=== PATIENT | male | born 1945 | race African-American/Black ===

== ENCOUNTER 2022-09-12 08:59 | Day surgery (SDC) | payer OTHER ==
--- NOTE | 2022-09-10 17:30 | EKG ---
Test Date: 2022-09-10 Test Time: 10:19:39 Major Assembly Inspector: ALLYN MEASUREMENT RESULTS: Intervals: Rate: 93 GA: 134 QRSD: 94 QT: 344 QTc: 427 [place]: P: 78 GA: 134 QRS: -45 T: 62 INTERPRETIVE STATEMENTS: Normal sinus rhythm Left anterior fascicular block Nonspecific ST abnormality Abnormal ECG No previous ECG available for comparison Electronically Signed On 09-10-22 17:30:18 CDT by Gideon Mccauley
[2022-09-12] MEDS ORDERED: Ringers Lactate 1,000 ML IV ONE (09:29)
[2022-09-12 10:16] VITALS: O2SAT 100
[2022-09-12] MEDS ORDERED: SUGAMMADEX SODIUM 200 MG/2 ML VIAL IV ONE (11:37)
[2022-09-12] MEDS ORDERED: propofoL 200 MG/20 ML VIAL IV ONE (11:54)
[2022-09-12] MEDS ORDERED: ROCURONIUM 50 MG/5 ML VIAL IV ONE (11:54)
[2022-09-12] MEDS ORDERED: FENTANYL CITR 100 MCG/2 ML ONE (11:54)
[2022-09-12] MEDS ORDERED: MIDAZOLAM HCL 2 MG/2 ML INJ ONE (11:54)
[2022-09-12] MEDS ORDERED: ONDANSETRON 4 MG/2 ML VIAL ONE (11:55)
[2022-09-12] MEDS ORDERED: LIDOCAINE 2% MPF 5 ML VIAL ONE (11:55)
[2022-09-12] MEDS ORDERED: EPINEPHRINE/PF 1 MG/ML AMP ONE (12:12)
[2022-09-12] MEDS ORDERED: LIDOCAINE HCL/EPINEPHRINE 20 ML MDV ONE (12:12)
[2022-09-12] MEDS ORDERED: dexAMETHasone 10 MG/ML VIAL ONE (12:38)
[2022-09-12] MEDS ORDERED: NEOSTIGMINE 1 MG/ML -10 ML VIAL ONE (12:54)
[2022-09-12] MEDS ORDERED: GLYCOPYRROLATE 0.2 MG/ML SYR ONE ×2 (12:54→13:07)
--- NOTE | 2022-09-12 13:14 | P.OP ---
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
[2022-09-12] MEDS ORDERED: HYDROMORPHONE HCL 1 MG/ML INJ ONE (13:44)
[2022-09-12 13:54] VITALS: TEMP 97.5
[2022-09-12] MEDS ORDERED: ACETAMINOPHEN 500 MG TAB ONE (14:15)
[2022-09-12 14:32] VITALS: BP 105/50
== END 2022-09-12 14:28 | disposition home or self-care (01) ==
LOC: OR 08:59
PROVIDERS: ATTEND Otolaryngology
PROC: 0CBR8ZX Excision of Epiglottis, Via Natural or Artificial Opening Endoscopic, Diagnostic (ICD-10-PCS; principal; 2022-09-12 10:15)
DX: C32.1 Malignant neoplasm of supraglottis (principal)
CPT/HCPCS: 31541; 93005; 88305; J2704; J2710; J2001; J3010; J1100; J1170; J2405; J7120; 88304; J0171; J2250